=== PATIENT | female | born 1995 | race Two or more races ===

== ENCOUNTER 2025-06-26 20:26 | Emergency (ER) | payer OTHER ==
[~2025-06-26] VITALS: Ht 357.1 cm; Wt 80.6 kg
[2025-06-26 21:17] VITALS: BP 132/81; PULSE 109; RESP 18; TEMP 98.1; O2SAT 96
[2025-06-26] MEDS ORDERED: CIPR1SUS8 OT (21:27)
[2025-06-26] MEDS ORDERED: IBUP-1456 PO (21:27)
--- NOTE | 2025-06-26 21:31 | ED.PDOC ---
Eye-HPI HPI Comments 29-year-old female presents to ER with complaints of right-sided earache pain x1 day. Patient reports he has been experiencing right-sided earache pain with associated yellow drainage and muffled hearing from right ear x1 day. Reports that she recently was treated for a right-sided ear infection two weeks ago and rates her current right-sided earache pain an 8/10. Patient presents to ER ambulatory on arrival, with steady gait, in no distress. Denies fever, body aches, chills, headache, dizziness, nausea/vomiting, recent swimming or any further symptoms/complaints Chief Complaint: Earache Time Seen by MD: 20:37 Primary Care Provider: UNKNOWN Reviewed Notes: Nurses Notes, Medications, Allergies Allergies: Coded Allergies: NO KNOWN ALLERGIES (Unverified , 06/26/25) Information Source: Patient Mode of Arrival: Ambulatory Past Medical History PAST MEDICAL HISTORY: Denies Surgical History: Denies all surgeries DEAN OF INSTRUCTION History: No Pertinent DEAN OF INSTRUCTION History LMP "Current" Family History Family History: Unknown Social History Smoker: Non-Smoker Alcohol: Denies ETOH Use Drugs: Denies Drug Use Lives In: Home Constitutional: denies: chills, diaphoresis, fatigue, fever, malaise, sweats, weakness, others EENTM: reports: others (As stated in HPI) Respiratory: denies: cough, hemoptysis, orthopnea, SOB at rest, shortness of breath, SOB with excertion, stridor, wheezing, others Cardiovascular: denies: chest pain, dizzy spells, diaphoresis, Dyspnea on exertion, edema, irregular heart beat, left arm pain, lightheadedness, palpitations, PND, syncope, others Gastrointestinal: denies: abdomen distended, abdominal pain, blood streaked bowels, constipated, diarrhea, dysphagia, difficulty swallowing, hematemesis, melena, nausea, poor appetite, poor fluid intake, rectal bleeding, rectal pain, vomiting, others Genitourinary: denies: abnormal vagina bleeding, burning, dyspareunia, dysuria, flank pain, frequency, hematuria, incontinence, pain, , vagina discharge, urgency, others Neurological: denies: dizziness, fainting, headache, left sided numbness, left sided weakness, numbness, paresthesia, pre-existing deficit, right sided numbness, right sided weakness, seizure, speech problems, tingling, tremors, weakness, others Musculoskeletal: denies: back pain, gout, joint pain, joint swelling, muscle pain, muscle stiffness, neck pain, others Integumetry: denies: bruises, change in color, change in hair/nails, dryness, laceration, lesions, lumps, rash, wounds, others Allergic/Immunocompromised: denies: Difficulty Healing, Frequent Infections, Hives, Itching, others Hematologic/Lymphatic: denies: anemia, blood clots, easy bleeding, easy bruising, swollen glands, others Endocrine: denies: excessive hunger, excessive sweating, excessive thirst, excessive urination, flushing, intolerance to cold, intolerance to heat, unexp lained weight gain, unexplained weight loss, others Psychiatric: denies: anxiety, bipolar disorder, depression, hopeless, panic disorder, schizophrenia, sleepless, suicidal, others Physical Exam General Appearance: No Apparent Distress HEENT: PERRL/EOMI, Pharynx Normal, Other (Mild swelling and minimal yellow drainage noted to right middle ear canal. Unable to visualize right TM due to swelling/yellow drainage. TTP to right tragus also noted, no TTP to right mastoid process noted, no skin changes right ear noted. 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 Was a procedure done?: No Sedation Sedation?: No EENT DIFF Eye: N/A Ear: Cerumen Impaction, Otitis Media, Perforation X-Ray, Labs, Meds, VS Vital Signs Date Time Temp Pulse Resp B/P (MAP) Pulse Ox O2 Delivery O2 Flow Rate FiO2 06/26/25 21:17 98.1 109 18 132/81 (98) 96 98.1 06/26/25 20:33 98.1 125 18 132/81 96 98.1 Ibuprofen 800 mg p.o. ordered Advised to keep ear canal dry and not stick any foreign body into right ear Advised to follow up with PCP in 1-2 days Patient verbalized understanding and agreeable with current plan of care Advised to return to ER immediately if symptoms worsen Time of 1ST Reevaluation: 21:02 Reevaluation 1ST: N/A Patient Education/Counseling: Diagnosis, Treatment, Prognosis, Need For Follow Up Family Education/Counseling: No Family Present SEPSIS Sepsis Screen Date sepsis recognized/suspect: Jun 26, 2025 Time Sepsis recognized/suspect: 2029 Recent Procedure: No On Antibiotic Therapy: Yes (FINISHED THIS PAST WEEK.) Respiratory Rate >20: No Heart Rate >90: Yes Temp<36 C (96.8 F) or >38.3 C: No SBP <90 or MAP <65 mmHG: No New Acute Mental Status Change: No Is the patient on CPAP, BIPAP,: No Physician Orders Ibuprofen Tablet (Motrin Tablet) (06/26/25 21:30) Vital Signs Date Time Temp Pulse Resp B/P (MAP) Pulse Ox O2 Delivery O2 Flow Rate FiO2 06/26/25 21:17 98.1 109 18 132/81 (98) 96 98.1 06/26/25 20:33 98.1 125 18 132/81 96 98.1 Departure 1 Departure Time of Disposition: 21:22 Impression: Primary Impression: Otitis externa of right ear Qualified Codes: H60.501 - Unspecified acute noninfective otitis externa, right ear Disposition: HOME / SELF CARE / HOMELESS Condition: Stable e-Prescriptions Ibuprofen (Ibuprofen) 800 Mg Tab 1 TAB PO TID PRN, #30 TAB 0 Refills Prov: ALAINA BUCK 06/26/25 Ciprofloxacin-Dexamethasone (Ciprofloxacin/Dexamethaso 0.3-0.1 %) 1 Nabila Nabila 4 DROP OT BID for 7 Days, #1 BOTTLE Prov: ALAINA BUCK 06/26/25 Discharged With: Self Critical Care Note Critical Care Time?: No Stability Stability form required: No Heart Score Heart Score: Heart Score Response (Comments) Value History N/A 0 EKG N/A 0 Age N/A 0 Risk Factors N/A 0 Troponin N/A 0 Total 0 ALAINA BUCK Jun 26, 2025 21:31
[2025-06-26] MEDS: IBUPROFEN 800 MG TAB PO ONE (21:41)
== END 2025-06-26 21:40 | disposition home or self-care (01) ==
LOC: ER 20:26
DX: H60.91 Unspecified otitis externa, right ear (principal); Z79.899 Other long term (current) drug therapy

== ENCOUNTER 2025-06-28 01:17 | Emergency (ER) | payer OTHER ==
[~2025-06-28] VITALS: Ht 152.4 cm; Wt 82.3 kg
[~2025-06-28 01:17] MED LIST: CIPR1SUS8 OT; IBUP-1456 PO
[2025-06-28 01:26] VITALS: BP 116/70; PULSE 97; RESP 18; TEMP 98.3; O2SAT 96
[2025-06-28] MEDS ORDERED: PRED20TA2 PO (01:32)
[2025-06-28] MEDS ORDERED: AMOX875T4 PO (01:32)
--- NOTE | 2025-06-28 01:32 | ED.PDOC ---
Eye-HPI HPI Comments 29-year-old female presents to ER with complaints of right-sided earache pain x 3 days. Patient reports she has been experiencing right-sided earache pain with associated yellow drainage and muffled hearing from right ear x3 days. Patient was diagnosed with right sided otitis externa in ER here on 06/26/25 and has been taking Cirprodex and Ibuprofen x 1 day "without relief". Patient rates her current right sided earache pain a 06/21 and presents to ER ambulatory on arrival, with steady gait, in no distress with vitals stable. Denies fever, body aches, chills, headache, dizziness, nausea/vomiting, recent swimming or any further symptoms/complaints Chief Complaint: Earache Time Seen by MD: 01:18 Primary Care Provider: [place] Reviewed Notes: Nurses Notes, Medications, Allergies Allergies: Coded Allergies: NO KNOWN ALLERGIES (Unverified , 06/26/25) Home Meds Active Scripts Acetaminophen W/ Codeine (Tylenol W/Cod #3) 1 Tab Tb, 1 TAB PO Q6HPRN, #10 TAB 0 Refills Prov:ALAINA BUCK 06/28/25 Prednisone (Prednisone) 20 Mg Tab, 20 MG PO BID for 5 Days, #10 TAB 0 Refills Prov:ALAINA BUCK 06/28/25 Amoxicillin & Pot Clavulanate (Amoxicillin/Potassium Cla) 875 Mg Tab, 1 TAB PO BID for 10 Days, #20 TAB 0 Refills Prov:ALAINA BUCK 06/28/25 Ibuprofen (Ibuprofen) 800 Mg Tab, 1 TAB PO TID PRN, #30 TAB 0 Refills Prov:ALAINA BUCK 06/26/25 Ciprofloxacin-Dexamethasone (Ciprofloxacin/Dexamethaso 0.3-0.1 %) 1 Nabila Nabila, 4 DROP OT BID for 7 Days, #1 BOTTLE Prov:ALAINA BUCK 06/26/25 Information Source: Patient Mode of Arrival: Ambulatory Past Medical History PAST MEDICAL HISTORY: Denies Surgical History: Denies all surgeries SUPERVISOR POLE YARD History: No Pertinent SUPERVISOR POLE YARD History LMP "Current" Family History Family History: Unknown Social History Smoker: Non-Smoker Alcohol: Denies ETOH Use Drugs: Denies Drug Use Lives In: Home Constitutional: denies: chills, diaphoresis, fatigue, fever, malaise, sweats, weakness, others EENTM: reports: others (As stated in HPI) Respiratory: denies: cough, hemoptysis, orthopnea, SOB at rest, shortness of breath, SOB with excertion, stridor, wheezing, others Cardiovascular: denies: chest pain, dizzy spells, diaphoresis, Dyspnea on exertion, edema, irregular heart beat, left arm pain, lightheadedness, p alpitations, PND, syncope, others Gastrointestinal: denies: abdomen distended, abdominal pain, blood streaked bowels, constipated, diarrhea, dysphagia, difficulty swallowing, hematemesis, melena, nausea, poor appetite, poor fluid intake, rectal bleeding, rectal pain, vomiting, others Genitourinary: denies: abnormal vagina bleeding, burning, dyspareunia, dysuria, flank pain, frequency, hematuria, incontinence, pain, , vagina discharge, urgency, others Neurological: denies: dizziness, fainting, headache, left sided numbness, left sided weakness, numbness, paresthesia, pre-existing deficit, right sided numbness, right sided weakness, seizure, speech problems, tingling, tremors, weakness, others Musculoskeletal: denies: back pain, gout, joint pain, joint swelling, muscle pain, muscle stiffness, neck pain, others Integumetry: denies: bruises, change in color, change in hair/nails, dryness, laceration, lesions, lumps, rash, wounds, others Allergic/Immunocompromised: denies: Difficulty Healing, Frequent Infections, Hives, Itching, others Hematologic/Lymphatic: denies: anemia, blood clots, easy bleeding, easy bruising, swollen glands, others Endocrine: denies: excessive hunger, excessive sweating, excessive thirst, excessive urination, flushing, intolerance to cold, intolerance to heat, unexplained weight gain, unexplained weight loss, others Psychiatric: denies: anxiety, bipolar disorder, depression, hopeless, panic disorder, schizophrenia, sleepless, suicidal, others Physical Exam General Appearance: No Apparent Distress HEENT: PERRL/EOMI, Pharynx Normal, TMs Normal, Other (Moderate swelling and minimal yellow drainage noted to right middle ear canal. Unable to visualize right TM due to swelling/yellow drainage. TTP to right tragus also noted, no TTP to right mastoid process noted, no erythema/skin changes to right external ear noted. Decreased whispered hearing on right. Ear exam on left-unremarkable) Neck: Full Range of Motion, Non-Tender, Normal Respiratory: Chest Non-Tender, Lungs Clear, No Accessory Muscle Use, No Respiratory Distress, Normal Breath Sounds Cardiovascular: No Murmur, No Gallop, Regular Rate/Rhythm Breast Exam: Deferred Gastrointestinal: NOT DONE Genitalia: Deferred Pelvic: Deferred Rectal: Deferred Extremities: Normal capillary refill, Normal range of motion Neurologic: Alert, knotter II-XII nml as Tested, No Motor Deficits, Normal Affect, Normal Mood, No Sensory Deficits Cerebellar Function: Normal Reflexes: Normal Skin: Dry, Normal Color, Warm Lymphatic: No Adenopathy Was a procedure done? Was a procedure done?: No Sedation Sedation?: No EENT DIFF Eye: N/A Ear: Abrasion, Cerumen Impaction, Foreign Body, Otitis Media, Perforation, Other (Mastoiditis) X-Ray, Labs, Meds, VS Vital Signs Date Time Temp Pulse Resp B/P (MAP) Pulse Ox O2 Delivery O2 Flow Rate FiO2 06/28/25 01:26 98.3 97 18 116/70 (85) 96 98.3 06/28/25 01:19 98.3 97 18 116/70 96 98.3 Previous chart visit reviewed Rocephin 1 g IM ordered Solu-Medrol 125 mg IM ordered [place] 5/325 mg p.o. ordered Zofran 4 mg p.o. ordered Patient had improvement in symptoms and in no distress prior to discharge Advised to keep ear canal dry and not to stick any foreign body into right ear canal Advised to continue Ciprodex as prescribed along with starting the following medications below as prescribed Patient provided information with regards to local ENTs and advised to follow up in 1-2 days Patient also advised to follow up with PCP in 1-2 days Patient verbalized understanding and agreeable with current plan of care Advised to return to ER immediately if symptoms worsen Time of 1ST Reevaluation: 01:18 Reevaluation 1ST: N/A Patient Education/Counseling: Diagnosis, Treatment, Prognosis, Need For Follow Up Family Education/Counseling: No Family Present SEPSIS Sepsis Screen Date sepsis recognized/suspect: Jun 28, 2025 Time Sepsis recognized/suspect: 0119 Recent Procedure: No On Antibiotic Therapy: No Respiratory Rate >20: No Heart Rate >90: Yes Temp<36 C (96.8 F) or >38.3 C: No SBP <90 or MAP <65 mmHG: No New Acute Mental Status Change: No Is the patient on CPAP, BIPAP,: No Vital Signs Date Time Temp Pulse Resp B/P (MAP) Pulse Ox O2 Delivery O2 Flow Rate FiO2 06/28/25 01:26 98.3 97 18 116/70 (85) 96 98.3 06/28/25 01:19 98.3 97 18 116/70 96 98.3 Departure 1 Departure Time of Disposition: 01:47 Impression: Primary Impression: Otitis externa of right ear Qualified Codes: H60.501 - Unspecified acute noninfective otitis externa, right ear Disposition: HOME / SELF CARE / HOMELESS Condition: Stable e-Prescriptions Acetaminophen W/ Codeine (Tylenol W/Cod #3) 1 Tab Tb 1 TAB PO Q6HPRN, #10 TAB 0 Refills Prov: ALAINA BUCK 06/28/25 Prednisone (Prednisone) 20 Mg Tab 20 MG PO BID for 5 Days, #10 TAB 0 Refills Prov: ALAINA BUCK 06/28/25 Amoxicillin & Pot Clavulanate (Amoxicillin/Potassium Cla) 875 Mg Tab 1 TAB PO BID for 10 Days, #20 TAB 0 Refills Prov: ALAINA BUCK 06/28/25 Discharged With: Friend Critical Care Note Critical Care Time?: No Stability Stability form required: No Heart Score Heart Score: Heart Score Response (Comments) Value History N/A 0 EKG N/A 0 Age N/A 0 Risk Factors N/A 0 Troponin N/A 0 Total 0 ALAINA BUCK Jun 28, 2025 01:32
[2025-06-28] MEDS ORDERED: ACE3T PO (01:33)
[2025-06-28] MEDS: HYDROcodone-ACET 5/325MG TAB PO ONE (01:55)
[2025-06-28] MEDS: ONDANSETRON ODT 4 MG TAB PO ONE (01:56)
[2025-06-28] MEDS: cefTRIAXone SOD 1,000 MG VL IM ONE (02:03)
[2025-06-28] MEDS: methylPREDNISolone SOD SUCC 125 MG/2 ML VL IM ONE (02:04)
== END 2025-06-28 02:08 | disposition home or self-care (01) ==
LOC: ER 01:17
DX: H60.91 Unspecified otitis externa, right ear (principal); Z79.899 Other long term (current) drug therapy; Z79.52 Long term (current) use of systemic steroids
CPT/HCPCS: 96372; 99284; J0696; J2919; Q0162